=== PATIENT | male | born 1975 | race Caucasian/White ===

== ENCOUNTER → 2017-08-05 | Outpatient (CLI) | payer OTHER ==
[~2017-08-05] VITALS: Ht 182.9 cm; Wt 138.4 kg
[~2017-08-05] MED LIST: ADVIL,NUPRIN,M200 MG PO; AMLODIPINE BESYL5 MG PO; CIPRO500 MG PO; EXCEDRIN EXTRA1 EACH PO; FLEXERIL10 MG PO; FLOMAX0.4 MG PO; HYDROCHLOROTHIA25 MG PO; HYDROCODON-ACE1 EAC7 PO; IBU-200200 MG PO; NAPROSYN500 MG PO; NORCO 5/3251 TABLET PO; OXAYDO5 MG PO; PERCOCET 5/31 TABLET PO; TRAMADOL HCL50 MG PO
== END | disposition home or self-care (01) ==
LOC: AMB 08:49
PROC: 0DBE8ZX Excision of Large Intestine, Via Natural or Artificial Opening Endoscopic, Diagnostic (ICD-10-PCS; principal; 2017-08-05)
DX: R19.7 Diarrhea, unspecified (principal); K64.8 Other hemorrhoids; K58.0 Irritable bowel syndrome with diarrhea; R10.84 Generalized abdominal pain; K21.9 Gastro-esophageal reflux disease without esophagitis; K76.0 Fatty (change of) liver, not elsewhere classified; E66.01 Morbid (severe) obesity due to excess calories; I10 Essential (primary) hypertension; G47.33 Obstructive sleep apnea (adult) (pediatric); Z68.41 Body mass index [BMI] 40.0-44.9, adult
CPT/HCPCS: 88305; 93005; J2250